=== PATIENT | male | born 1990 | race Caucasian/White ===

== ENCOUNTER → 2016-09-24 | Outpatient (CLI) | payer OTHER ==
[~2016-09-24] MED LIST: LAMICTAL200 MG PO; TRILEPTAL PO; TRILISATE PO; VIMPAT200 MG PO
== END ==
LOC: LAB 06:52
DX: Z00.00 Encounter for general adult medical examination without abnormal findings (principal); G40.109 Localization-related (focal) (partial) symptomatic epilepsy and epileptic syndromes with simple partial seizures, not intractable, without status epilepticus

== ENCOUNTER → 2017-09-04 | Outpatient (CLI) | payer OTHER ==
[2013-10-02 20:05] VITALS: BP 106/54
[2017-09-04 11:26] LABS: EOS # 0.2 (0.04-0.40); EOS % 4.3 % (0.0-4.0); HEMATOCRIT 43.6 % (42.0-52.0); HEMOGLOBIN 14.6 g/dL (13.5-18.0); MEAN CELL VOLUME 92 fl (78-100); MEAN CORPUSCULAR HEMOGLOBIN 31 pg (27-31); MEAN CORPUSCULAR HGB CONC 34 g/dL (33-37); MEAN PLATELET VOLUME 9.2 fl (7.4-10.4); MONO # 0.5 (0.20-0.80); NEU # 2.9 (1.40-6.50); PLATELET COUNT 276 K/mm3 (130-400); RED BLOOD COUNT 4.76 M/mm3 (4.20-5.60); RED CELL DISTRIBUTION WIDTH 12.5 % (11.5-14.5); WHITE BLOOD COUNT 4.6 K/mm3 (4.8-10.8)
[2017-09-04 11:33] LABS: ALBUMIN 4.3 g/dL (3.5-5.0); BUN/CREATININE RATIO 19.3 (6.0-26.0); POTASSIUM 4.4 mmol/L (3.6-5.0); TOTAL BILIRUBIN 0.4 mg/dL (0.2-1.3); TOTAL PROTEIN 7.6 g/dL (6.3-8.2)
[2017-09-08 11:22] LABS: LACOSAMIDE 4.5 mcg/mL (())
== END ==
LOC: LAB 11:06
DX: G40.119 Localization-related (focal) (partial) symptomatic epilepsy and epileptic syndromes with simple partial seizures, intractable, without status epilepticus (principal)

== ENCOUNTER → 2018-08-25 | Outpatient (CLI) | payer OTHER ==
[2013-10-02 20:05] VITALS: BP 106/54
== END ==
LOC: LAB 09:42
DX: Z00.00 Encounter for general adult medical examination without abnormal findings (principal)

== ENCOUNTER → 2018-12-01 | Outpatient (CLI) | payer OTHER ==
[2013-10-02 20:05] VITALS: BP 106/54
== END ==
LOC: LAB 07:41
DX: Z00.00 Encounter for general adult medical examination without abnormal findings (principal); Z86.39 Personal history of other endocrine, nutritional and metabolic disease

== ENCOUNTER → 2019-07-04 | Outpatient (CLI) | payer OTHER ==
[2013-10-02 20:05] VITALS: BP 106/54
== END ==
LOC: RAD 09:07
DX: I86.1 Scrotal varices (principal); Q55.29 Other congenital malformations of testis and scrotum

== ENCOUNTER → 2019-08-16 | Outpatient (CLI) | payer OTHER ==
[2013-10-02 20:05] VITALS: BP 106/54
== END ==
LOC: RAD 08-15 17:27
DX: M54.2 Cervicalgia (principal)

== ENCOUNTER → 2019-09-02 | Outpatient (CLI) | payer OTHER ==
[2013-10-02 20:05] VITALS: BP 106/54
[2019-09-02 11:20] LABS: EOS # 0.1 (0.04-0.40); EOS % 3.1 % (0.0-4.0); HEMATOCRIT 43.9 % (42.0-52.0); HEMOGLOBIN 14.7 g/dL (13.5-18.0); LYMPH# 1.1 (1.50-4.00); MEAN CELL VOLUME 92 fl (78-100); MEAN CORPUSCULAR HEMOGLOBIN 31 pg (27-31); MEAN CORPUSCULAR HGB CONC 34 g/dL (33-37); MEAN PLATELET VOLUME 9.4 fl (7.4-10.4); MONO # 0.4 (0.20-0.80); NEU # 2.3 (1.40-6.50); PLATELET COUNT 274 K/mm3 (130-400); RED BLOOD COUNT 4.78 M/mm3 (4.20-5.60); RED CELL DISTRIBUTION WIDTH 11.9 % (11.5-14.5); WHITE BLOOD COUNT 3.9 K/mm3 (4.8-10.8)
[2019-09-02 11:21] LABS: POTASSIUM 4.2 mmol/L (3.5-5.1)
[2019-09-02 11:22] LABS: ALBUMIN 4.4 g/dL (3.5-5.0)
[2019-09-02 11:23] LABS: CALCIUM 9.2 mg/dL (8.3-10.5)
[2019-09-02 11:26] LABS: TOTAL BILIRUBIN 0.4 mg/dL (0.2-1.2)
== END ==
LOC: LAB 10:54
PROVIDERS: Family Medicine
DX: Z00.00 Encounter for general adult medical examination without abnormal findings (principal); G40.109 Localization-related (focal) (partial) symptomatic epilepsy and epileptic syndromes with simple partial seizures, not intractable, without status epilepticus

== ENCOUNTER → 2020-01-24 | Outpatient (CLI) | payer OTHER ==
[2013-10-02 20:05] VITALS: BP 106/54
== END ==
LOC: LAB 01-23 12:05
DX: Z20.828 Contact with and (suspected) exposure to other viral communicable diseases (principal)

== ENCOUNTER → 2020-03-19 | Outpatient (CLI) | payer OTHER ==
[2013-10-02 20:05] VITALS: BP 106/54
== END ==
LOC: RAD 09:53
DX: M25.562 Pain in left knee (principal); M25.462 Effusion, left knee

== ENCOUNTER → 2020-04-11 | Outpatient (CLI) | payer OTHER ==
[2013-10-02 20:05] VITALS: BP 106/54
== END ==
LOC: LAB 08:35
DX: Z20.828 Contact with and (suspected) exposure to other viral communicable diseases (principal)

== ENCOUNTER → 2020-08-24 | Outpatient (CLI) | payer OTHER ==
[2013-10-02 20:05] VITALS: BP 106/54
[2020-08-24 11:51] LABS: EOS # 0.1 (0.04-0.40); EOS % 2.1 % (0.0-4.0); HEMATOCRIT 42.8 % (42.0-52.0); LYMPH# 0.9 (1.50-4.00); MEAN CELL VOLUME 95 fl (78-100); MEAN CORPUSCULAR HEMOGLOBIN 31 pg (27-31); MEAN CORPUSCULAR HGB CONC 33 g/dL (33-37); MEAN PLATELET VOLUME 9.8 fl (7.4-10.4); MONO # 0.3 (0.20-0.80); NEU # 2.5 (1.40-6.50); PLATELET COUNT 236 K/mm3 (130-400); RED CELL DISTRIBUTION WIDTH 12.6 % (11.5-14.5); WHITE BLOOD COUNT 3.8 K/mm3 (4.8-10.8)
[2020-08-24 11:57] LABS: ALBUMIN 4.4 g/dL (3.5-5.0); POTASSIUM 4.5 mmol/L (3.5-5.1)
[2020-08-24 11:58] LABS: CALCIUM 8.8 mg/dL (8.3-10.5)
[2020-08-24 11:59] LABS: TOTAL PROTEIN 6.8 g/dL (6.4-8.3)
[2020-08-24 12:01] LABS: TOTAL BILIRUBIN 0.4 mg/dL (0.2-1.2)
== END ==
LOC: LAB 11:06
PROVIDERS: Family Medicine
DX: Z00.00 Encounter for general adult medical examination without abnormal findings (principal); E78.5 Hyperlipidemia, unspecified

== ENCOUNTER → 2020-08-28 | Outpatient (CLI) | payer OTHER ==
[2013-10-02 20:05] VITALS: BP 106/54
[2020-08-28 10:53] LABS: EOS # 0.1 (0.04-0.40); EOS % 2.9 % (0.0-4.0); HEMATOCRIT 45.5 % (42.0-52.0); LYMPH# 1.2 (1.50-4.00); MEAN CELL VOLUME 94 fl (78-100); MEAN CORPUSCULAR HEMOGLOBIN 31 pg (27-31); MEAN CORPUSCULAR HGB CONC 33 g/dL (33-37); MEAN PLATELET VOLUME 9.8 fl (7.4-10.4); MONO # 0.4 (0.20-0.80); NEU # 2.1 (1.40-6.50); PLATELET COUNT 253 K/mm3 (130-400); RED BLOOD COUNT 4.84 M/mm3 (4.20-5.60); RED CELL DISTRIBUTION WIDTH 12.4 % (11.5-14.5); WHITE BLOOD COUNT 3.8 K/mm3 (4.8-10.8)
== END ==
LOC: LAB 10:22
PROVIDERS: Family Medicine
DX: Z00.00 Encounter for general adult medical examination without abnormal findings (principal); E78.5 Hyperlipidemia, unspecified; D72.819 Decreased white blood cell count, unspecified

== ENCOUNTER → 2020-10-11 | Outpatient (CLI) | payer OTHER ==
[2013-10-02 20:05] VITALS: BP 106/54
== END ==
LOC: RAD 15:21
DX: S61.233A Puncture wound without foreign body of left middle finger without damage to nail, initial encounter (principal)

== ENCOUNTER → 2021-10-07 | Outpatient (CLI) | payer OTHER ==
[2021-10-07 14:37] LABS: BASO # 0.02 K/mm3 (0.02-0.10); EOS # 0.15 K/mm3 (0.04-0.40); EOS % 2.9 % (0.0-4.0); HEMATOCRIT 42.9 % (42.0-52.0); HEMOGLOBIN 14.4 g/dL (13.5-18.0); LYMPH# 1.35 K/mm3 (1.50-4.00); MEAN CELL VOLUME 95 fl (78-100); MEAN CORPUSCULAR HEMOGLOBIN 32 pg (27-31); MEAN CORPUSCULAR HGB CONC 34 g/dL (33-37); MEAN PLATELET VOLUME 9.2 fl (7.4-10.4); MONO # 0.38 K/mm3 (0.20-0.80); NEU # 3.19 K/mm3 (1.40-6.50); PLATELET COUNT 262 K/mm3 (130-400); RED BLOOD COUNT 4.52 M/mm3 (4.20-5.60); RED CELL DISTRIBUTION WIDTH 11.7 % (11.5-14.5); WHITE BLOOD COUNT 5.1 K/mm3 (4.8-10.8)
[2021-10-07 14:38] LABS: ALBUMIN 4.2 g/dL (3.5-5.0); POTASSIUM 3.9 mmol/L (3.5-5.1)
[2021-10-07 14:40] LABS: CALCIUM 9.1 mg/dL (8.3-10.5)
[2021-10-07 14:41] LABS: TOTAL PROTEIN 6.7 g/dL (6.4-8.3)
[2021-10-07 14:43] LABS: TOTAL BILIRUBIN 0.4 mg/dL (0.2-1.2)
== END ==
LOC: LAB 14:19
PROVIDERS: Family Medicine
DX: Z00.00 Encounter for general adult medical examination without abnormal findings (principal)

== ENCOUNTER → 2023-09-05 | Outpatient (CLI) | payer OTHER ==
[2023-09-05 10:04] LABS: BASO # 0.01 K/mm3 (0.02-0.10); EOS # 0.12 K/mm3 (0.04-0.40); EOS % 3.2 % (0.0-4.0); HEMATOCRIT 42.7 % (42.0-52.0); HEMOGLOBIN 14.3 g/dL (13.5-18.0); LYMPH# 1.12 K/mm3 (1.50-4.00); MEAN CELL VOLUME 95 fl (78-100); MEAN CORPUSCULAR HEMOGLOBIN 32 pg (27-31); MEAN CORPUSCULAR HGB CONC 34 g/dL (33-37); MONO # 0.33 K/mm3 (0.20-0.80); NEU # 2.14 K/mm3 (1.40-6.50); PLATELET COUNT 222 K/mm3 (130-400); RED BLOOD COUNT 4.49 M/mm3 (4.20-5.60); RED CELL DISTRIBUTION WIDTH 11.8 % (11.5-14.5); WHITE BLOOD COUNT 3.7 K/mm3 (4.8-10.8)
[2023-09-05 10:12] LABS: ALBUMIN 4.5 g/dL (3.5-5.0)
[2023-09-05 10:13] LABS: CALCIUM 8.8 mg/dL (8.3-10.5)
[2023-09-05 10:15] LABS: TOTAL PROTEIN 6.9 g/dL (6.4-8.3)
[2023-09-05 10:16] LABS: TOTAL BILIRUBIN 0.46 mg/dL (0.2-1.2)
== END ==
LOC: LAB 09:42
DX: G40.219 Localization-related (focal) (partial) symptomatic epilepsy and epileptic syndromes with complex partial seizures, intractable, without status epilepticus (principal)

== ENCOUNTER 2023-09-13 09:36 | Emergency (ER) | payer OTHER ==
[~2023-09-13] VITALS: Ht 22.9 cm; Wt 73.9 kg
[2023-09-13] MEDS ORDERED: Ketorolac 30 MG/ML VIAL IV ONE (10:15)
[2023-09-13 10:27] LABS: BASO # 0.03 K/mm3 (0.02-0.10); EOS # 0.18 K/mm3 (0.04-0.40); HEMATOCRIT 45.2 % (42.0-52.0); HEMOGLOBIN 15.1 g/dL (13.5-18.0); LYMPH# 1.39 K/mm3 (1.50-4.00); MEAN CELL VOLUME 97 fl (78-100); MEAN CORPUSCULAR HEMOGLOBIN 33 pg (27-31); MEAN CORPUSCULAR HGB CONC 33 g/dL (33-37); MEAN PLATELET VOLUME 9.4 fl (7.4-10.4); MONO # 0.46 K/mm3 (0.20-0.80); NEU # 2.44 K/mm3 (1.40-6.50); PLATELET COUNT 209 K/mm3 (130-400); RED BLOOD COUNT 4.64 M/mm3 (4.20-5.60); RED CELL DISTRIBUTION WIDTH 12.1 % (11.5-14.5); WHITE BLOOD COUNT 4.5 K/mm3 (4.8-10.8)
[2023-09-13 10:30] VITALS: BP 86/41
[2023-09-13 10:34] LABS: ALBUMIN 4.2 g/dL (3.5-5.0)
[2023-09-13 10:36] LABS: CALCIUM 8.7 mg/dL (8.3-10.5)
[2023-09-13 10:37] LABS: TOTAL PROTEIN 6.8 g/dL (6.4-8.3)
[2023-09-13 10:53] LABS: TOTAL BILIRUBIN 0.4 mg/dL (0.2-1.2)
[2023-09-13 11:15] LABS: PH-URINE 7.5 (5.0 - 8.0); URINE APPEARANCE SLIGHTLY CLOUDY (CLEAR); URINE BILIRUBIN NEGATIVE (NEGATIVE); URINE BLOOD NEGATIVE (NEGATIVE); URINE COLOR YELLOW (YELLOW); URINE GLUCOSE NEGATIVE (NEGATIVE); URINE KETONE NEGATIVE (NEGATIVE); URINE LEUKOCYTE ESTERASE NEGATIVE (NEGATIVE); URINE NITRATE NEGATIVE (NEGATIVE); URINE PROTEIN(semi-quant) 1+ (NEGATIVE); URINE WBC 0-1 /hpf (0-3)
[2023-09-13] MEDS ORDERED: Morphine 4 MG/ML VIAL IV PRN (12:00)
[2023-09-13] MEDS ORDERED: Iohexol 300 - 100 ML VIAL IV ONE (12:22)
[2023-09-13] MEDS ORDERED: NORCO 325 MG-51 TA1 PO (13:21)
== END 2023-09-13 13:52 | disposition home or self-care (01) ==
LOC: ED 09:36
PROVIDERS: Family Medicine
DX: R10.11 Right upper quadrant pain (principal); Z88.5 Allergy status to narcotic agent
CPT/HCPCS: J1885; J2270; Q9967

== ENCOUNTER → 2023-12-14 | Outpatient (CLI) | payer OTHER ==
[~2023-12-14] MED LIST changes: +NORCO 325 MG-51 TA1 PO
== END ==
LOC: RAD 07:31
DX: S62.612A Displaced fracture of proximal phalanx of right middle finger, initial encounter for closed fracture (principal); W19.XXXA Unspecified fall, initial encounter

== ENCOUNTER → 2024-06-24 | Outpatient (CLI) | payer OTHER ==
[2024-06-27 11:39] LABS: BASO # 0.02 K/mm3 (0.02-0.10); EOS # 0.11 K/mm3 (0.04-0.40); EOS % 2.9 % (0.0-4.0); HEMATOCRIT 44.6 % (42.0-52.0); HEMOGLOBIN 14.9 g/dL (13.5-18.0); LYMPH# 1.08 K/mm3 (1.50-4.00); MEAN CELL VOLUME 95 fl (78-100); MEAN CORPUSCULAR HEMOGLOBIN 32 pg (27-31); MEAN CORPUSCULAR HGB CONC 33 g/dL (33-37); MEAN PLATELET VOLUME 8.9 fl (7.4-10.4); MONO # 0.32 K/mm3 (0.20-0.80); PLATELET COUNT 256 K/mm3 (130-400); RED BLOOD COUNT 4.69 M/mm3 (4.20-5.60); RED CELL DISTRIBUTION WIDTH 11.9 % (11.5-14.5); WHITE BLOOD COUNT 3.8 K/mm3 (4.8-10.8)
[2024-06-27 11:40] LABS: ALBUMIN 4.7 g/dL (3.5-5.0); CALCIUM 9.3 mg/dL (8.3-10.5); TOTAL BILIRUBIN 0.4 mg/dL (0.2-1.2); TOTAL PROTEIN 7.6 g/dL (6.4-8.3)
== END ==
LOC: LAB 11:42
PROVIDERS: Nurse Practitioner
DX: Z00.00 Encounter for general adult medical examination without abnormal findings (principal); R04.2 Hemoptysis

== ENCOUNTER → 2024-07-25 | Outpatient (CLI) | payer OTHER | LOC: AMSURD 11:44 | DX: R00.2 Palpitations (principal) ==

== ENCOUNTER → 2024-08-19 | Outpatient (CLI) | payer OTHER ==
[2024-08-19 14:20] LABS: BASO # 0.02 K/mm3 (0.02-0.10); EOS # 0.12 K/mm3 (0.04-0.40); HEMATOCRIT 40.3 % (42.0-52.0); HEMOGLOBIN 13.4 g/dL (13.5-18.0); LYMPH# 0.82 K/mm3 (1.50-4.00); MEAN CELL VOLUME 96 fl (78-100); MEAN CORPUSCULAR HEMOGLOBIN 32 pg (27-31); MEAN CORPUSCULAR HGB CONC 33 g/dL (33-37); MEAN PLATELET VOLUME 9.1 fl (7.4-10.4); MONO # 0.37 K/mm3 (0.20-0.80); NEU # 2.68 K/mm3 (1.40-6.50); PLATELET COUNT 202 K/mm3 (130-400); RED BLOOD COUNT 4.19 M/mm3 (4.20-5.60); RED CELL DISTRIBUTION WIDTH 12.4 % (11.5-14.5)
[2024-08-19 14:33] LABS: ALBUMIN 4.4 g/dL (3.5-5.0)
[2024-08-19 14:34] LABS: CALCIUM 9.4 mg/dL (8.3-10.5)
[2024-08-19 14:35] LABS: TOTAL PROTEIN 6.9 g/dL (6.4-8.3)
[2024-08-19 14:37] LABS: TOTAL BILIRUBIN 0.5 mg/dL (0.2-1.2)
== END ==
LOC: LAB 09:37
PROVIDERS: Nurse Practitioner Family
DX: G40.219 Localization-related (focal) (partial) symptomatic epilepsy and epileptic syndromes with complex partial seizures, intractable, without status epilepticus (principal)

== ENCOUNTER → 2024-08-26 | Outpatient (CLI) | payer OTHER ==
[~2024-08-26] VITALS: Ht 175.3 cm; Wt 75.3 kg
[~2024-08-26] MED LIST changes: +Regadenoson 0.08 MG/ML 5 ML VIAL IV SCH
== END ==
LOC: CARDREHAB 07:43
DX: R00.2 Palpitations (principal)
CPT/HCPCS: A9500; J2785